=== PATIENT | female | born 1940 | race Caucasian/White ===

== ENCOUNTER 2019-01-27 00:33 | Outpatient (CLI) | payer MEDICARE, OTHER, SELFPAY ==
[2019-01-27 09:46] LABS: Abs Immature Grans 0.01 k/cumm (0.0-0.09); Absolute Basophil Count 0.02 k/cumm (0.0-0.2); Absolute Eosinophil Count 0.34 k/cumm (0.0-0.7); Absolute Lymphocyte Count 1.12 k/cumm (1.2-3.4); Absolute Monocyte Count 0.84 k/cumm (0.11-0.7); Absolute Neutrophil Count 3.72 k/cumm (1.2-6.7); Basophils % 0.3; Eosinophils % 5.6; HCT 38.5 % (36.0-46.0); HGB 12.7 g/dL (12.0-15.5); Immature Grans % 0.2; Lymphocytes % 18.5; Mean Platelet Volume 9.9 fL (8.0-11.0); Monocytes % 13.9; Neutrophils % 61.5; Platelet Count 249 x1000/uL (130-400); RBC 4.23 m/cumm (4.00-5.20); RBC Distribution Width 12.4 % (11.7-14.6); White Blood Cell Count 6.05 k/cumm (4.4-10.8)
[2019-01-27] MEDS: Omnipaque 350 MG/ML 50 ML BTL PO (09:55)
[2019-01-27 10:10] LABS: ALT 19 U/L (12-78); AST 18 U/L (15-37); Albumin 3.6 g/dL (3.4-5.0); Alkaline Phosphatase 99 U/L (46-116); Anion Gap 8.8 mmol/L (3-11); BUN 23 mg/dL (7-18); Bilirubin, Total 0.3 mg/dL (0.2-1.0); CO2 27.2 mmol/L (21.0-32.0); CREATININE 0.97 mg/dL (0.55-1.02); Calcium 9.7 mg/dL (8.5-10.1); Chloride 103 mmol/L (98-107); Estimated GFR 55.54 (mL/min/1.73m2); FREE T4 1.34 ng/dL (0.76-1.46); Glucose 96 mg/dL (70-100); Potassium 4.4 mmol/L (3.5-5.1); Sodium 139 mmol/L (136-145); TSH 0.54 uIU/mL (0.36-3.74); Total Protein 7.9 g/dL (6.4-8.2)
[2019-01-27] MEDS: Omnipaque 350 MG/ML 100 ML BTL IV (10:33)
--- NOTE | 2019-01-27 10:45 | DI.CT_ITS ---
SYMPTOM/DIAGNOSIS: BLADDER CANCER C67.4 , RESTAGING CT SCAN CHEST, ABDOMEN AND PELVIS: Comparison is 10/08/18 CT ABDOMEN AND PELVIS: The liver is unremarkable. No suspicious hepatic mass is seen. The portal, superior mesenteric and splenic veins are patent. The gallbladder is negative. There is no biliary ductal dilatation. The pancreas is unremarkable. The spleen is unremarkable. The adrenal glands are unremarkable. The kidneys show normal and symmetric enhancement. No suspicious solid renal mass or obstruction is identified. 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 There is atherosclerosis of the abdominal aorta but no aneurysmal dilatation. No significant abdominal or pelvic adenopathy, ascites or pneumoperitoneum is present. The patient is status post cystectomy. No residual or recurrent mass is seen in the operative bed. There is diverticulosis of the colon but no evidence of acute diverticulitis. No evidence of bowel obstruction. The patient appears to be status post appendectomy. No aggressive osseous lesions are identified. There is a moderate size hiatal hernia present. IMPRESSION: No evidence of residual or recurrent metastatic neoplasm noted. No evidence of metastatic disease in the abdomen or pelvis. Stable post surgical changes in the pelvis. CT CHEST: The thoracic aorta is intact and of normal caliber. Heart size is at the upper limits of normal. No significant pericardial effusion is seen. No significant thoracic adenopathy, pleural effusion or pneumothorax is identified. Scarring or atelectasis is seen in the lung bases. No pulmonary nodules are identified. The tracheobronchial tree is unremarkable. No suspicious osseous lesions are identified. IMPRESSION: No evidence of thoracic metastatic disease.
== END 2019-01-27 00:53 ==
PROVIDERS: PCP Nurse Practitioner; Visit Provider Internal Medicine Hematology
DX: Z93.6 Other artificial openings of urinary tract status (principal); C67.4 Malignant neoplasm of posterior wall of bladder; E07.9 Disorder of thyroid, unspecified; Z12.89 Encounter for screening for malignant neoplasm of other sites; K44.9 Diaphragmatic hernia without obstruction or gangrene
CPT/HCPCS: 74177; 80053; 71260; 84439; 84443; 85025; J3490; Q9967

== ENCOUNTER 2021-08-18 19:50 | Outpatient (REF) | payer MEDICARE, OTHER, SELFPAY ==
[2021-08-18 20:25] LABS: TSH (W/Ref FT4) 0.62 uIU/mL (0.36-3.74)
== END 2021-08-18 19:51 | disposition home or self-care (01) ==
LOC: LBN 19:50
PROVIDERS: PCP Nurse Practitioner; Visit Provider Nurse Practitioner Family
DX: E03.9 Hypothyroidism, unspecified (principal)
CPT/HCPCS: 84443

== ENCOUNTER → 2021-09-30 11:27 | Outpatient (CLI) | payer MEDICARE, OTHER, SELFPAY ==
--- NOTE | 2021-09-30 | DI.CT_ITS ---
Exam(s) CT HEAD WO EXAM: CT HEAD WO CLINICAL HISTORY: HYPERTENSION,VISION CHANGES,LT FACIAL PARESTHESIA,H53.9,R20.2,I10. TECHNIQUE: Imaging Protocol: Axial computed tomography images with coronal and sagittal reformatted images were created and reviewed COMPARISON: CT HEAD AND CSPINE W/O CONTRAST from 09/02/2016 FINDINGS: Ventricles and Extra axial spaces: Normal in size and morphology for the patient's age. Hemorrhage: None. 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 There are areas of decreased atte nuation in the white matter consistent with small vessel ischemic disease. No acute territorial infa rct is present. Midline shift: None. Brainstem/Cerebellum: Normal. Calvarium: Normal. Visualized Paranasal sinuses/Mastoids: There is opacification of a few ethmoid air cells. The remain ing visualized paranasal sinuses and mastoid air cells are clear. Soft Tissues: Unremarkable. IMPRESSION: No acute intracranial process. RADIATION DOSE DELIVERED: 640.6mGy.cm Total DLP DATA REPOSITORY: All CT scans at this facility are submitted to the National Radiology Data Registry (NRDR) Dose Index Registry (DIR) with the [employer] (ACR). RADIATION OPTIMIZATION: All CT scans at this facility use at least one of these dose optimization te chniques: automated exposure control; mA and/or kV adjustment per patient size (includes targeted exa ms where dose is matched to clinical indication); or iterative reconstruction.
== END ==
PROVIDERS: PCP Nurse Practitioner Family; Visit Provider Nurse Practitioner Family
DX: I10 Essential (primary) hypertension (principal); R20.2 Paresthesia of skin; H53.9 Unspecified visual disturbance
CPT/HCPCS: 70450

== ENCOUNTER 2021-09-30 14:39 | Outpatient (REF) | payer MEDICARE, OTHER, SELFPAY ==
[2021-09-30 16:10] LABS: Abs Immature Grans 0.05 10^3/uL (0.0-0.06); Absolute Basophil Count 0.05 10^3/uL (0.0-0.2); Absolute Eosinophil Count 0.36 10^3/uL (0.0-0.7); Absolute Monocyte Count 0.82 10^3/uL (0.1-0.8); Absolute Neutrophil Count 4.79 10^3/uL (1.2-6.7); Basophils % 0.6; Eosinophils % 4.6; HCT 40.2 % (36.0-46.0); HGB 12.9 g/dL (11.2-15.7); Immature Grans % 0.6; Lymphocytes % 21.9; MCH 31.2 pg (27.0-33.0); MCHC 32.1 % (32.0-36.0); MCV 97.1 fL (80-95); MPV 10.1 fL (8.0-11.0); Monocytes % 10.6; Neutrophils % 61.7; Nucleated RBC 0 %; Platelet Count 323 10^3/uL (130-400); RBC 4.14 10^6/uL (3.93-5.22); RDW 13.2 % (11.7-14.6); RDW-SD 47.6 fL; WBC 7.77 10^3/uL (4.4-10.8)
[2021-09-30 16:50] LABS: ALT 21 U/L (14-59); AST 18 U/L (15-37); Albumin 3.7 g/dL (3.4-5.0); Alkaline Phosphatase 110 U/L (46-116); Anion Gap 11.2 mmol/L (3-11); BUN 17 mg/dL (7-18); Bilirubin, Total 0.3 mg/dL (0.2-1.0); CO2 24.8 mmol/L (21.0-32.0); CREATININE 1.1 mg/dL (0.55-1.02); Calcium 9.2 mg/dL (8.5-10.1); Chloride 105 mmol/L (98-107); Estimated GFR 47.67 (mL/min/1.73m2); Glucose 80 mg/dL (74-106); Magnesium 1.8 mg/dL (1.8-2.4); Potassium 4.3 mmol/L (3.5-5.1); Sodium 141 mmol/L (136-145); Total Protein 7.3 g/dL (6.4-8.2); Vitamin B12 82 pg/mL (193-986)
== END 2021-09-30 14:40 | disposition home or self-care (01) ==
LOC: NCHCN 14:39
PROVIDERS: PCP Nurse Practitioner Family; Visit Provider Nurse Practitioner Family
DX: I10 Essential (primary) hypertension (principal); R20.2 Paresthesia of skin; H53.9 Unspecified visual disturbance
CPT/HCPCS: 80053; 82607; 83735; 85025

== ENCOUNTER 2021-12-12 19:27 | Outpatient (REF) | payer MEDICARE, OTHER, SELFPAY ==
[2021-12-12 20:27] LABS: Anion Gap 9.4 mmol/L (3-11); BUN 21 mg/dL (7-18); CO2 25.6 mmol/L (21.0-32.0); CREATININE 1.1 mg/dL (0.55-1.02); Calcium 8.9 mg/dL (8.5-10.1); Chloride 104 mmol/L (98-107); Estimated GFR 47.67 (mL/min/1.73m2); Glucose 99 mg/dL (74-106); Potassium 4.4 mmol/L (3.5-5.1); Sodium 139 mmol/L (136-145)
[2021-12-12 20:32] LABS: Folate > 20.0 ng/mL (8.6-20.0); Vitamin B12 > 2000 pg/mL (193-986)
== END 2021-12-12 19:28 | disposition home or self-care (01) ==
LOC: NCHCN 19:27
PROVIDERS: PCP Nurse Practitioner Family; Visit Provider Nurse Practitioner Family
DX: E53.8 Deficiency of other specified B group vitamins (principal); I10 Essential (primary) hypertension
CPT/HCPCS: 80048; 82607; 82746

== ENCOUNTER 2022-06-15 17:36 | Outpatient (REF) | payer MEDICARE, OTHER, SELFPAY ==
[2022-06-15 18:37] LABS: ALT 17 U/L (14-59); AST 30 U/L (15-37); Albumin 3.7 g/dL (3.4-5.0); Alkaline Phosphatase 104 U/L (46-116); Anion Gap 7.4 mmol/L (3-11); BUN 26 mg/dL (7-18); Bilirubin, Total 0.2 mg/dL (0.2-1.0); CO2 26.6 mmol/L (21.0-32.0); Calcium 9.7 mg/dL (8.5-10.1); Chloride 103 mmol/L (98-107); Estimated GFR 56.25 (mL/min/1.73m2); Glucose 89 mg/dL (74-106); Potassium 4.4 mmol/L (3.5-5.1); Sodium 137 mmol/L (136-145); TSH 0.67 uIU/mL (0.36-3.74); Total Protein 7.9 g/dL (6.4-8.2)
== END 2022-06-15 17:37 | disposition home or self-care (01) ==
LOC: NCHCN 17:36
PROVIDERS: PCP Nurse Practitioner Family; Visit Provider Nurse Practitioner Family
DX: I10 Essential (primary) hypertension (principal); E03.9 Hypothyroidism, unspecified
CPT/HCPCS: 80053; 84443

== ENCOUNTER 2022-10-04 01:58 | Outpatient (CLI) | payer MEDICARE, OTHER, SELFPAY ==
--- NOTE | 2022-10-04 | DI.MAMMO_ITS ---
Exam(s) MAMMO SCREENING EXAM: MAMMO SCREENING CLINICAL HISTORY: SCREENING, Z12.39 TECHNIQUE: Mammograms were interpreted according to the usual protocol including computer analysis w [employer] CAD system, tomosynthesis and C-view imaging. COMPARISON: 2013 FINDINGS: The breasts are composed of scattered fibroglandular densities, Breast Density category B. No suspicious masses or suspicious microcalcifications are seen. No skin thickening or abnormal axillary lymph nodes are seen. There has been no significant change from prior exams. IMPRESSION: BI-RADS Category 1, Negative mammogram Continued annual screening should be based on patient's clinical status given age over 80... Breast Density - Category B, scattered fibroglandular densities. A negative radiographic report should not delay biopsy if a dominant or clinically suspicious mass is present. Up to ten percent of cancers are not identified on mammography. A negative report may reinforce clinical impression. Adenosis and dense breasts may obscure an underlying neoplasm. False positive reports average 6 to 10%. Patient will receive a letter notifying them of these results.
== END 2022-10-04 02:18 ==
LOC: DI 01:59
PROVIDERS: PCP Nurse Practitioner Family; Visit Provider Nurse Practitioner Family
DX: Z12.31 Encounter for screening mammogram for malignant neoplasm of breast (principal)
CPT/HCPCS: 77063; 77067

== ENCOUNTER 2022-12-14 11:27 | Outpatient (REF) | payer MEDICARE, OTHER, SELFPAY ==
[2022-12-14 16:57] LABS: Vitamin B12 > 2000 pg/mL (193-986)
[2022-12-14 16:58] LABS: Folate > 20.0 ng/mL (8.6-20.0)
== END 2022-12-14 11:28 | disposition home or self-care (01) ==
LOC: NCHCN 11:27
PROVIDERS: PCP Nurse Practitioner Family; Visit Provider Nurse Practitioner Family
DX: E53.8 Deficiency of other specified B group vitamins (principal)
CPT/HCPCS: 82607; 82746

== ENCOUNTER 2023-01-22 16:13 | Outpatient (REF) | payer MEDICARE, OTHER, SELFPAY ==
[2023-01-22 14:04] LABS: ESR 65 mm/hr (0-30)
[2023-01-23 10:52] LABS: Lyme Ab w Rflx to Lyme Confirm Negative (Negative)
== END 2023-01-22 16:14 | disposition home or self-care (01) ==
LOC: LBN 16:13
PROVIDERS: PCP Nurse Practitioner Family; Visit Provider Nurse Practitioner Family
DX: M79.10 Myalgia, unspecified site (principal); T14.8XXA Other injury of unspecified body region, initial encounter; W57.XXXA Bitten or stung by nonvenomous insect and other nonvenomous arthropods, initial encounter
CPT/HCPCS: 85652; 86618

== ENCOUNTER 2023-02-01 17:10 | Outpatient (REF) | payer MEDICARE, OTHER, SELFPAY ==
[2023-02-01 16:05] LABS: Abs Immature Grans 0.06 10^3/uL (0.0-0.06); Absolute Basophil Count 0.07 10^3/uL (0.0-0.2); Absolute Eosinophil Count 0.29 10^3/uL (0.0-0.7); Absolute Lymphocyte Count 1.78 10^3/uL (1.2-3.4); Absolute Neutrophil Count 5.49 10^3/uL (1.2-6.7); Basophils % 0.8; Eosinophils % 3.4; HCT 38.7 % (36.0-46.0); HGB 12.5 g/dL (11.2-15.7); Immature Grans % 0.7; MCH 29.8 pg (27.0-33.0); MCHC 32.3 % (32.0-36.0); MCV 92 fL (80-95); MPV 10.3 fL (8.0-11.0); Monocytes % 9.4; Neutrophils % 64.7; Platelet Count 360 10^3/uL (130-400); RDW 12.8 % (11.7-14.6); RDW-SD 43.2 fL; WBC 8.49 10^3/uL (4.4-10.8)
[2023-02-01 16:47] LABS: TSH 1.52 uIU/mL (0.36-3.74)
[2023-02-02 12:38] LABS: Lyme Ab w Rflx to Lyme Confirm Negative (Negative)
[2023-02-02 15:34] LABS: ANA Interpretation Positive (Negative); ANA Titer Pattern 1:160 Homogeneous
[2023-02-03 23:50] LABS: Anaplasma phagocytophilum Negative (Negative); B. miyamotoi PCR Negative (Negative); Babesia divergens/MO-1 Negative (Negative); Babesia duncani Negative (Negative); Babesia microti Negative (Negative); Ehrlichia chaffeensis Negative (Negative); Ehrlichia ewingii/canis Negative (Negative); Ehrlichia muris eauclairensis Negative (Negative)
== END 2023-02-01 17:11 | disposition home or self-care (01) ==
LOC: NCHCN 17:10
PROVIDERS: PCP Nurse Practitioner Family; Visit Provider Nurse Practitioner Family
DX: E03.9 Hypothyroidism, unspecified (principal); R53.83 Other fatigue; M79.18 Myalgia, other site; W57.XXXA Bitten or stung by nonvenomous insect and other nonvenomous arthropods, initial encounter; T14.8XXA Other injury of unspecified body region, initial encounter
CPT/HCPCS: 87798; 84443; 85025; 86038; 86618

== ENCOUNTER 2023-08-29 14:38 | Outpatient (REF) | payer MEDICARE, OTHER, SELFPAY ==
[2023-08-29 19:41] LABS: Abs Immature Grans 0.03 10^3/uL (0.0-0.06); Absolute Basophil Count 0.06 10^3/uL (0.0-0.2); Absolute Eosinophil Count 0.33 10^3/uL (0.0-0.7); Absolute Lymphocyte Count 1.61 10^3/uL (1.2-3.4); Absolute Monocyte Count 0.79 10^3/uL (0.1-0.8); Basophils % 0.7; Eosinophils % 4.1; HCT 39.5 % (36.0-46.0); Immature Grans % 0.4; Lymphocytes % 19.8; MCH 30.4 pg (27.0-33.0); MCHC 32.9 % (32.0-36.0); MCV 93 fL (80-95); MPV 10.6 fL (8.0-11.0); Monocytes % 9.7; Neutrophils % 65.3; Platelet Count 306 10^3/uL (130-400); RBC 4.27 10^6/uL (3.93-5.22); RDW 13.2 % (11.7-14.6); RDW-SD 44.6 fL; WBC 8.12 10^3/uL (4.4-10.8)
[2023-08-29 20:21] LABS: ALT 15 U/L (14-59); AST 23 U/L (15-37); Albumin 3.7 g/dL (3.4-5.0); Alkaline Phosphatase 89 U/L (46-116); BUN 23 mg/dL (7-18); Bilirubin, Total 0.3 mg/dL (0.2-1.0); CREATININE 1.3 mg/dL (0.55-1.02); Calcium 9.5 mg/dL (8.5-10.1); Chloride 104 mmol/L (98-107); FREE T4 1.25 ng/dL (0.76-1.46); Glucose 93 mg/dL (74-106); Magnesium 1.9 mg/dL (1.8-2.4); Potassium 4.5 mmol/L (3.5-5.1); Sodium 140 mmol/L (136-145); TSH 1.79 uIU/Ml (0.36-3.74); Total Protein 7.6 g/dL (6.4-8.2)
[2023-08-29 21:27] LABS: Vitamin B12 737 pg/mL (193-986)
== END 2023-08-29 14:39 | disposition home or self-care (01) ==
LOC: NCHCN 14:38
PROVIDERS: PCP Nurse Practitioner Family; Visit Provider Nurse Practitioner Family
DX: I10 Essential (primary) hypertension (principal); E03.9 Hypothyroidism, unspecified; E53.8 Deficiency of other specified B group vitamins; M79.10 Myalgia, unspecified site
CPT/HCPCS: 80053; 82607; 83735; 84439; 84443; 85025

== ENCOUNTER 2024-01-15 13:21 | Emergency (ER) | payer MEDICARE, OTHER, SELFPAY ==
[2024-01-15] VITALS (42 sets, daily range): BP systolic 93–130; BP diastolic 32–68; PULSE 58–77; RESP 16–18; TEMP 35.5–37.2; O2SAT 95–98
--- NOTE | 2024-01-15 13:41 | DI.CT_ITS ---
Exam(s) CT ABDOMEN PELVIS WO EXAM: CT ABDOMEN PELVIS WO CLINICAL HISTORY: ABD PAIN DIARRHEA. TECHNIQUE: Imaging Protocol: Axial computed tomography images with coronal and sagittal reformatted images were created and reviewed. Oral: / no COMPARISON: CT CT CHEST/ABD/PEL W from 01/27/2019 FINDINGS: Lung Bases: Mild atelectasis. Heart mildly enlarged. Small to moderate size hiatal hernia. Liver: Normal density. No suspicious mass. Gallbladder and biliary tract: No radiodense calculus or biliary dilation. Pancreas: Normal density. No abnormal calcifications or inflammatory process. Spleen: Normal. Kidneys: Normal size, contour and axis. No radiodense stones. No obstructive uropathy. No suspicious masses seen. Right ureters diverted to ileal conduit. No change in appearance. Adrenal glands: No masses seen. Lymph nodes: Within normal limits. Vasculature: Abdominal aorta non-dilated. Soft tissues: Ileal conduit again noted. There is now a low portion of the splenic flexure of the co delta which now extends through the right-sided abdominal wall defect. There is marked abnormal bowel wall thickening and some stranding in the surrounding fat suspicious for incarceration. There is a s mall fatty containing umbilical hernia seen to the right of the midline more inferiorly. Bladder: Resected. Bowel: See soft tissues. Sigmoid diverticulosis noted. No diverticulitis. There appears to be some fluid in the rectum. No wall thickening. Peritoneal cavity: No ascites. No focal collection. No mesenteric inflammatory response. Reproductive organs: Hysterectomy. Bones: Unremarkable for age. IMPRESSION: Hepatic flexure of the colon and extends through the defect in the abdominal wall for the ileal condu it. The bowel show significant wall thickening and surrounding inflammation suspicious for incarcera tion. The ileal conduit portion is unchanged. No hydronephrosis. Findings called to Dr. Pabon of the emergency department. RADIATION DOSE DELIVERED: Total DLP DATA REPOSITORY: All CT scans at this facility are submitted to the National Radiology Data Registry (NRDR) Dose Index Registry (DIR) with the [employer] (ACR). RADIATION OPTIMIZATION: All CT scans at this facility use at least one of these dose optimization te chniques: automated exposure control; mA and/or kV adjustment per patient size (includes targeted exa ms where dose is matched to clinical indication); or iterative reconstruction.
[2024-01-15] MEDS: Normal Saline 1,000 ML 1000 ML IV ×2 (14:10→15:41)
[2024-01-15 14:13] LABS: Lactate 1.3 mmol/L (0.6-1.4)
[2024-01-15 14:14] LABS: Abs Immature Grans 0.05 10^3/uL (0.0-0.06); Absolute Basophil Count 0.03 10^3/uL (0.0-0.2); Absolute Eosinophil Count 0.08 10^3/uL (0.0-0.7); Absolute Lymphocyte Count 0.91 10^3/uL (1.2-3.4); Absolute Monocyte Count 0.95 10^3/uL (0.1-0.8); Basophils % 0.2 %; Eosinophils % 0.6 %; HCT 39.6 % (36.0-46.0); HGB 13.1 g/dL (11.2-15.7); Immature Grans % 0.4 %; Lymphocytes % 6.8 %; MCH 29.5 pg (27.0-33.0); MCHC 33.1 % (32.0-36.0); MCV 89 fL (80-95); MPV 10.1 fL (8.0-11.0); Monocytes % 7.1 %; Neutrophils % 84.9 %; Platelet Count 252 10^3/uL (130-400); RBC 4.44 10^6/uL (3.93-5.22); RDW-SD 45.6 fL; WBC 13.44 10^3/uL (4.4-10.8)
[2024-01-15 14:15] LABS: Absolute Neutrophil Count 11.41 10^3/uL (1.2-6.7)
[2024-01-15 14:17] LABS: ESR 41 mm/hr (0-30)
[2024-01-15 14:30] LABS: ALT 14 U/L (14-59); AST 16 U/L (15-37); Albumin 3.4 g/dL (3.4-5.0); Alkaline Phosphatase 93 U/L (46-116); Anion Gap 15.3 mmol/L (3-11); BUN 33 mg/dL (7-18); Bilirubin, Total 0.63 mg/dL (0.2-1.0); C-Reactive Protein 14.02 mg/dL (<or=0.5); CO2 19.7 mmol/L (21.0-32.0); Calcium 9.1 mg/dL (8.5-10.1); Chloride 102 mmol/L (98-107); Estimated GFR 24.33 (mL/min/1.73m2); Glucose 132 mg/dL (74-106); Magnesium 1.5 mg/dL (1.8-2.4); Potassium 3.6 mmol/L (3.5-5.1); Sodium 137 mmol/L (136-145); Total Protein 7.7 g/dL (6.4-8.2)
[2024-01-15] MEDS: MAGNESIUM SULFATE 2 GM/50 ML BAG IVINF (15:10)
[2024-01-15 15:57] LABS: C Diff PCR Negative (Negative)
[2024-01-15] MEDS: PIPERACILLIN/TAZO 4.5 GM in Normal Saline 100 ML IVPB (16:51)
--- NOTE | 2024-01-15 16:57 | W.ED.GENAD ---
Discharge Plan Disposition Patient Disposition: Transfer-Acute Inpatient Care Discharge Details Clinical Impression: Parastomal hernia with obstruction, without gangrene Primary Care Provider: Unknown,Unknown ED Provider: Stephen Pabon Home Meds and New Rx's Prescriptions: No Action levothyroxine 50 MCG tablet 50 mcg PO DAILY albuterol sulfate 8.5 GM HFA aerosol inhaler 2 puff Inhalation PRN PRN lisinopril 40 MG tablet 40 mg PO HS amlodipine 2.5 MG tablet 2.5 mg PO HS multivitamin [Multi-Day] 1 EACH tablet 1 tab PO DAILY ketorolac 10 MG tablet 10 mg PO Q8H PRN (Reason: Pain) Qty: 15 0RF nitrofurantoin macrocrystal [Macrodantin] 50 MG capsule 50 mg PO QID Qty: 12 0RF HPI General Date/Time Provider Initiated Documentation: 01/15/24 13:38. Limitations to Documentation: physical limitation. Information obtained by: patient and family. HPI Narrative: 83-year-old female with past medical history including bladder cancer, status post radical cystectomy, hypertension presents for evaluation of abdominal discomfort and watery diarrhea. She reports that this has been ongoing for the last 24 hours. She reports multiple episodes of watery stool. No significant abdominal pain. She does not have any nausea or vomiting. No known fever. She reports feeling generally poor. Daughter reports history of bladder resection with ileostomy. They know that there is a hernia around the ostomy site, but this is her problems in the past. Related Data Home Medications ?Medication ?Instructions ?Recorded ?Confirmed albuterol sulfate 90 mcg/actuation 2 puff inhalation PRN PRN 04/05/15 01/15/24 aerosol inhaler levothyroxine 50 mcg tablet 50 mcg PO DAILY 04/05/15 01/15/24 lisinopril 40 mg tablet 40 mg PO HS 04/05/15 01/15/24 multivitamin (Multi-Day tablet) 1 tab PO DAILY 08/05/15 01/15/24 amlodipine 2.5 mg tablet 2.5 mg PO HS 02/27/17 01/15/24 ketorolac 10 mg tablet 10 mg PO Q8H PRN Pain #15 tabs 03/29/17 01/15/24 nitrofurantoin macrocrystal 50 mg 50 mg PO QID antibiotic #12 caps 03/29/17 01/15/24 capsule (Macrodantin) Previous Rx's ?Medication ?Instructions ?Recorded ketorolac 10 mg tablet 10 mg PO Q8H PRN Pain #15 tabs 03/29/17 nitrofurantoin macrocrystal 50 mg 50 mg PO QID antibiotic #12 caps 03/29/17 capsule (Macrodantin) Allergies Allergy/AdvReac Type Severity Reaction Status Date / Time doxycycline Allergy Unverified 04/20/17 10:33 metronidazole Allergy Unverified 04/20/17 10:33 General Stated Complaint: Nausea/Vomit/Diar JAVIER: 3 Exam Narrative Exam Narrative: Review of Systems: All systems reviewed & are unremarkable except as noted in HPI and below Well-developed, ill-appearing NCAT PERRL, normal conjunctiva Moist mucous membranes RRR, hypotension Unlabored, respiratory effort Nondistended abdomen no tenderness, ostomy in the right lower quadrant with some urine in the bag Extremities w/o deformity, no cyanosis, no edema No rashes or lesions. no focal neurologic deficits Appropriate mood and affect Course Vital Signs Vital signs: Vital Signs Temperature 35.5 C L 01/15/24 13:25 Pulse 77 01/15/24 13:25 Respiratory Rate 18 01/15/24 13:25 Blood Pressure 93/42 L 01/15/24 13:25 Pulse Oximetry 95 01/15/24 13:25 Temperature 37.2 C 01/15/24 13:37 Temperature Source Oral 01/15/24 13:37 Pulse 65 01/15/24 16:54 Pulse Rhythm Regular 01/15/24 14:44 Pulse Strength Normal 01/15/24 14:44 Respiratory Rate 18 01/15/24 13:25 Respiratory Effort Normal 01/15/24 13:38 Blood Pressure 112/56 L 01/15/24 16:54 Blood Pressure Mean 74 01/15/24 16:54 Blood Pressure Position Supine 01/15/24 16:54 Pulse Oximetry 95 01/15/24 13:25 Oxygen Delivery Method Room Air 01/15/24 13:25 Oxygen Flow Rate 0 01/15/24 13:25 Pain Level 0 01/15/24 13:25 Lab/Test Results Lab/Test Results: 01/15/24 14:28 Stool Stool Occult Blood ([facility]) - Final Laboratory Tests Range/Units 0701/15/24 01/15/24 13:41 14:05 14:28 WBC (4.4-10.8) 10^3/uL 13.44 H RBC (3.93-5.22) 10^6/uL 4.44 Hgb (11.2-15.7) g/dL 13.1 Hct (36.0-46.0) % 39.6 MCV (80-95) fL 89 MCH (27.0-33.0) pg 29.5 MCHC (32.0-36.0) % 33.1 RDW (11.7-14.6) % 14.0 Plt Count (130-400) 10^3/uL 252 MPV (8.0-11.0) fL 10.1 Immature Gran % % 0.4 Neutrophils % % 84.9 Lymphocytes % % 6.8 Monocytes % % 7.1 Eosinophils % % 0.6 Basophils % % 0.2 Nucleated RBC % (0.0-0.3) % 0.0 Absolute Neutrophils (1.2-6.7) 10^3/uL 11.41 H Absolute Lymphocytes (1.2-3.4) 10^3/uL 0.91 L Absolute Monocytes (0.1-0.8) 10^3/uL 0.95 H Absolute Eosinophils (0.0-0.7) 10^3/uL 0.08 Absolute Basophils (0.0-0.2) 10^3/uL 0.03 ESR (0-30) mm/hr 41 H VBG Lactate (0.6-1.4) mmol/L 1.3 Sodium (136-145) mmol/L 137 Potassium (3.5-5.1) mmol/L 3.6 Chloride (98-107) mmol/L 102 Carbon Dioxide (21.0-32.0) mmol/L 19.7 L Anion Gap (3-11) mmol/L 15.3 H BUN (7-18) mg/dL 33 H Creatinine (0.55-1.02) mg/dL 2.0 H Est GFR (CKD-EPI 2020) (mL/min/1.73m2) 24.33 Glucose (74-106) mg/dL 132 H Calcium (8.5-10.1) mg/dL 9.1 Magnesium Cancelled 1.5 L Total Bilirubin (0.2-1.0) mg/dL 0.63 AST (15-37) U/L 16 ALT (14-59) U/L 14 Alkaline Phosphatase (46-116) U/L 93 C-Reactive Protein (<or=0.5) mg/dL 14.02 H Total Protein (6.4-8.2) g/dL 7.7 Albumin (3.4-5.0) g/dL 3.4 Stl C.difficile Tox PCR (Negative) Negative Medical Decision Making Emergent evaluation of diarrhea. Initial differential includes bowel obstruction, colitis. Patient does not have any risk factors for C. difficile. 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 I did review her medical record and noted recent visit with [facility] general surgery. No surgical indication at that time given that she was not obstructed. Will begin resuscitation with IV fluids as the patient appears very dehydrated. Lab work reviewed, the patient does have a slight elevation in white blood cell count at 13 with a shift. ESR and CRP are significantly elevated. Her lactic acid is at the upper limit of normal. Her creatinine is elevated beyond her baseline. Her magnesium level is noted to be low as well this will be replaced IV. The patient has gotten a CT scan. Due to her renal insufficiency for today, this was obtained without IV contrast. I discussed the CT findings with the radiologist and there is concern for obstruction at the ostomy hernia site. The I discussed this finding with general surgery here who states that this is not a procedure that can be performed at this facility so I have reached out to [facility] for transfer I will give a dose of antibiotics. After fluid resuscitation the patient does appear clinically improved, her bowels have slightly slowed down but she is continuing to have frequent loose stools. Final disposition pending consultation and acceptance to [facility]. Turned over to oncoming provider. Medical Records Medical records reviewed: Yes I reviewed the patient's medical records. Lab Data Lab results reviewed: Yes I reviewed the patient's lab results. Quality:[facility] Related Social Needs: No Data to Display [facility] All Active Problems (Updated 01/15/24 @ 17:04 by Stephen Pabon MD) Parastomal hernia with obstruction, without gangrene (Acute) Family history of malignant neoplasm of digestive organ (Acute) Medical History Asthma Hypertension Hypothyroidism Surgical History Ligation of fallopian tube Excision, Bladder Tumor Colonoscopy - IV Sedation Extraction of cataract Social History Smoking/Tobacco Use Status: Never Smoking risk assessment performed?: Yes Alcohol Intake: current Drug use: Never Substance use type: does not use Do you feel safe in your relationship?: Yes
[2024-01-15] MEDS: Normal Saline 1,000 ML 125 ML IV (17:15)
--- NOTE | 2024-01-15 17:31 | ED.PROG_ITS ---
Date of service: 01/15/24 Time of Service: 17:31 Medical Decision Making Discussed with Dr. Craig general surgery at [facility] who accepts the patient as a direct admit. Will arrange for transport. Family updated. Quality:[facility] Related Social Needs: No Data to Display Discharge Plan Disposition Patient Disposition: Transfer-Acute Inpatient Care Discharge Details Clinical Impression: Parastomal hernia with obstruction, without gangrene Primary Care Provider: Unknown,Unknown ED Provider: Stephen Pabon Home Meds and New Rx's Prescriptions: No Action levothyroxine 50 MCG tablet 50 mcg PO DAILY albuterol sulfate 8.5 GM HFA aerosol inhaler 2 puff Inhalation PRN PRN lisinopril 40 MG tablet 40 mg PO HS amlodipine 2.5 MG tablet 2.5 mg PO HS multivitamin [Multi-Day] 1 EACH tablet 1 tab PO DAILY ketorolac 10 MG tablet 10 mg PO Q8H PRN (Reason: Pain) Qty: 15 0RF nitrofurantoin macrocrystal [Macrodantin] 50 MG capsule 50 mg PO QID Qty: 12 0RF
[2024-01-15] MEDS: ACETAMINOPHEN 1,000 MG/100 ML BTL 400 MG IVPB (17:50)
--- NOTE | 2024-01-15 17:54 | ED.PROG_ITS ---
Date of service: 01/15/24 Time of Service: 17:00 Medical Decision Making I received signout regarding this patient from Dr. Pabon. We are awaiting bed assignment at this point for [facility]. While waiting for bed placement the patient complained of feeling shaky all over. I did reevaluate her. Denies feeling more or worsening abdominal pain. Denies feeling more or worsening nausea. I did palpate her abdomen and it continues to be soft. I rechecked her vital signs. Her initial temperature at 125 was 35 degrees and now it is 36.7. I wonder if the shaking is rigors and the patient is about to develop a fever. I ordered IV Tylenol at this point. She will be closely observed. Tylenol was successful in controlling the patient's episode. [facility] transfer line has been contacted multiple times and most recently they informed ED paralegal legal secretary that they are working on discharges for [facility] with the goal that the patient will have an accepting bed for [facility]. We finally have bed assignment for the patient. We are arranging for transport now. Patient is informed of this plan and agreed. Quality:[facility] Related Social Needs: No Data to Display Discharge Plan Disposition Patient Disposition: Transfer-Acute Inpatient Care Discharge Details Clinical Impression: Parastomal hernia with obstruction, without gangrene Primary Care Provider: Unknown,Unknown ED Provider: Melita Marroquin Home Meds and New Rx's Prescriptions: No Action levothyroxine 50 MCG tablet 50 mcg PO DAILY albuterol sulfate 8.5 GM HFA aerosol inhaler 2 puff Inhalation PRN PRN lisinopril 40 MG tablet 40 mg PO HS amlodipine 2.5 MG tablet 2.5 mg PO HS multivitamin [Multi-Day] 1 EACH tablet 1 tab PO DAILY ketorolac 10 MG tablet 10 mg PO Q8H PRN (Reason: Pain) Qty: 15 0RF nitrofurantoin macrocrystal [Macrodantin] 50 MG capsule 50 mg PO QID Qty: 12 0RF
[2024-01-16 11:33] LABS: Campylobacter PCR Negative (Negative); Salmonella PCR Positive (Negative); Shiga Toxin PCR Negative (Negative); Shigella/Enteroinvasive Ecoli Negative (Negative)
== END 2024-01-15 22:52 | disposition short-term general hospital (02) ==
PROVIDERS: Emergency Medicine; Emergency Provider Emergency Medicine
DX: K43.3 Parastomal hernia with obstruction, without gangrene (principal); R19.7 Diarrhea, unspecified
CPT/HCPCS: 00123; 36415; 36416; 80053; 82962; 85652; 87493; 87505; 96361; 96365; 96367; 99285; 74176; 82270; 83605; 83735; 85025; 86140; J0131; J2543; J3475

== ENCOUNTER 2024-06-12 13:02 | Outpatient (REF) | payer MEDICARE, OTHER, SELFPAY ==
[2024-06-12 20:26] LABS: Abs Immature Grans 0.02 10^3/uL (0.0-0.06); Absolute Basophil Count 0.06 10^3/uL (0.0-0.2); Absolute Eosinophil Count 0.33 10^3/uL (0.0-0.7); Absolute Lymphocyte Count 1.92 10^3/uL (1.2-3.4); Absolute Monocyte Count 0.81 10^3/uL (0.1-0.8); Absolute Neutrophil Count 5.63 10^3/uL (1.2-6.7); Basophils % 0.7 %; Eosinophils % 3.8 %; HCT 42.3 % (36.0-46.0); HGB 13.8 g/dL (11.2-15.7); Immature Grans % 0.2 %; Lymphocytes % 21.9 %; MCH 29.9 pg (27.0-33.0); MCHC 32.6 % (32.0-36.0); MCV 92 fL (80-95); MPV 10.4 fL (8.0-11.0); Monocytes % 9.2 %; Neutrophils % 64.2 %; Platelet Count 289 10^3/uL (130-400); RBC 4.61 10^6/uL (3.93-5.22); RDW 12.6 % (11.7-14.6); RDW-SD 42.1 fL; WBC 8.77 10^3/uL (4.4-10.8)
[2024-06-12 20:42] LABS: Iron 52 ug/dL (50-170); Total Iron Binding Capacity 290 ug/dL (250-450); Transferrin Sat 18 % (15-50)
[2024-06-12 21:16] LABS: Vitamin B12 784 pg/mL (193-986)
[2024-06-12 21:17] LABS: Folate > 20.0 ng/mL (8.6-20.0)
[2024-06-12 21:33] LABS: FREE T4 1.31 ng/dL (0.76-1.46)
== END 2024-06-12 13:03 | disposition home or self-care (01) ==
LOC: NCHCN 13:02
PROVIDERS: Visit Provider Nurse Practitioner Family
DX: Z86.2 Personal history of diseases of the blood and blood-forming organs and certain disorders involving the immune mechanism (principal); E03.9 Hypothyroidism, unspecified; R89.8 Other abnormal findings in specimens from other organs, systems and tissues
CPT/HCPCS: 82607; 82746; 83540; 83550; 84439; 84443; 85025

== ENCOUNTER 2024-08-08 14:12 | Outpatient (REF) | payer MEDICARE, OTHER, SELFPAY ==
[2024-08-08 16:13] LABS: Abs Immature Grans 0.03 10^3/uL (0.0-0.06); Absolute Basophil Count 0.05 10^3/uL (0.0-0.2); Absolute Eosinophil Count 0.27 10^3/uL (0.0-0.7); Absolute Lymphocyte Count 1.54 10^3/uL (1.2-3.4); Absolute Monocyte Count 0.79 10^3/uL (0.1-0.8); Absolute Neutrophil Count 6.05 10^3/uL (1.2-6.7); Basophils % 0.6 %; Eosinophils % 3.1 %; HCT 40.4 % (36.0-46.0); HGB 13.2 g/dL (11.2-15.7); Immature Grans % 0.3 %; Lymphocytes % 17.6 %; MCH 30.2 pg (27.0-33.0); MCHC 32.7 % (32.0-36.0); MCV 92 fL (80-95); MPV 10.6 fL (8.0-11.0); Neutrophils % 69.4 %; Platelet Count 284 10^3/uL (130-400); RBC 4.37 10^6/uL (3.93-5.22); RDW 13.3 % (11.7-14.6); RDW-SD 45.4 fL; WBC 8.73 10^3/uL (4.4-10.8)
[2024-08-08 17:15] LABS: ALT 17 U/L (14-59); AST 23 U/L (15-37); Albumin 4.1 g/dL (3.4-5.0); Alkaline Phosphatase 108 U/L (46-116); Anion Gap 12.1 mmol/L (3-11); BUN 20 mg/dL (7-18); Bilirubin, Total 0.58 mg/dL (0.2-1.0); CO2 23.9 mmol/L (21.0-32.0); CREATININE 1.4 mg/dL (0.55-1.02); Calcium 9.7 mg/dL (8.5-10.1); Chloride 103 mmol/L (98-107); Ferritin 98 ng/mL (8-252); Glucose 72 mg/dL (74-106); Potassium 4.3 mmol/L (3.5-5.1); Sodium 139 mmol/L (136-145); Total Protein 8.1 g/dL (6.4-8.2)
[2024-08-08 17:35] LABS: Iron 126 ug/dL (50-170); Total Iron Binding Capacity 306 ug/dL (250-450); Transferrin Sat 41 % (15-50)
== END 2024-08-08 14:13 | disposition home or self-care (01) ==
LOC: NCHCN 14:12
PROVIDERS: Visit Provider Nurse Practitioner Family
DX: R06.09 Other forms of dyspnea (principal)
CPT/HCPCS: 80053; 82728; 83540; 83550; 85025

== ENCOUNTER 2024-08-11 11:36 | Outpatient (CLI) | payer MEDICARE, OTHER, SELFPAY ==
--- NOTE | 2024-08-11 10:38 | DI.RAD_ITS ---
Exam(s) XR CHEST 2V PA LATERAL EXAM: XR CHEST 2V PA LATERAL CLINICAL HISTORY: OTHER FORMS OF DYSPNEA R06.09 COLINDRES. TECHNIQUE: 2D digital imaging was performed. COMPARISON: CT CT ABDOMEN PELVIS WO from 01/15/2024 FINDINGS: 2 views: Heart size is normal. The mediastinum is not widened. Some atelectasis or scarring lung bases, probably corresponding to what was seen on CT scan of December 31. However, there are no obvious confluent infiltrates pleural effusions. No pulmonary edema. IMPRESSION: No acute pulmonary findings.Scarring or atelectasis in the lung bases noted. DATA REPOSITORY: RADIATION DOSE DELIVERED:
== END 2024-08-11 11:56 ==
LOC: DI 11:37
PROVIDERS: Visit Provider Nurse Practitioner Family
DX: R06.09 Other forms of dyspnea (principal)
CPT/HCPCS: 71046

== ENCOUNTER 2024-09-08 04:30 | Outpatient (CLI) | payer MEDICARE, OTHER, SELFPAY ==
[2024-09-08] MEDS: Inhaler, Assist Device 1 EACH MC (16:34)
[2024-09-08] MEDS: Levalbuterol HFA 15 GM INH 4 PUFF IH (16:34)
--- NOTE | 2024-09-09 15:39 | W.PFT ---
Date of service: 09/08/24 Time of Service: 15:04 Pulmonary Function Test Result Indications: Asthma Interpretation Spirometry: No airflow limitation. Significant bronchodilator response. Lung Volumes: Air trapping and hyperinflation Diffusion Capacity: Normal diffusion Airway Pressure: Normal airways resistance Impression No baseline airflow obstruction with a significant bronchodilator response and air trapping Clinical Correlation therefore is recommended.
== END 2024-09-08 04:31 | disposition home or self-care (01) ==
LOC: RT 04:30
PROVIDERS: PCP Nurse Practitioner Family; Visit Provider Student in an Organized Health Care Education/Training Program
DX: J45.909 Unspecified asthma, uncomplicated (principal)
CPT/HCPCS: 94060; 94726; 94729

== ENCOUNTER 2025-01-26 16:17 | Outpatient (REF) | payer MEDICARE, OTHER, SELFPAY ==
[2025-01-26 22:15] LABS: TSH 0.29 uIU/mL (0.36-3.74)
== END 2025-01-26 16:18 | disposition home or self-care (01) ==
LOC: NCHCN 16:17
PROVIDERS: PCP Nurse Practitioner Family; Visit Provider Student in an Organized Health Care Education/Training Program
DX: E03.9 Hypothyroidism, unspecified (principal)
CPT/HCPCS: 84439; 84443

== ENCOUNTER 2025-03-31 17:11 | Outpatient (REF) | payer MEDICARE, OTHER, SELFPAY ==
[2025-03-31 15:46] LABS: TSH (W/Ref FT4) 0.64 uIU/mL (0.36-3.74)
== END 2025-03-31 17:12 | disposition home or self-care (01) ==
LOC: NCHCN 17:11
PROVIDERS: PCP Nurse Practitioner Family; Visit Provider Student in an Organized Health Care Education/Training Program
DX: E03.9 Hypothyroidism, unspecified (principal)
CPT/HCPCS: 84443

== ENCOUNTER 2025-04-07 11:20 | Emergency (ER) | payer MEDICARE, OTHER, SELFPAY ==
[2025-04-07 11:21] VITALS: BP 125/82; PULSE 84; RESP 18; TEMP 36.3; O2SAT 96
--- NOTE | 2025-04-07 11:21 | RT.EKG_ITS ---
APPROVED REPORT Exam: Resting ECG Reason for Exam: Dizziness Patient Location: E HR:82 bpm ECG Measurements Heart Rate 82 AXIS SC 137 P -40 QRSd 77 QRS 59 QT 369 T -71 QTc 431 Conclusion Sinus rhythm, rate 82 No interval abnormalities No STEMI T wave inversions II, III, aVF, V3-V6, no priors available for comparison
--- NOTE | 2025-04-07 11:35 | ED.GENADUL_ITS ---
Discharge Plan Disposition Patient Disposition: Home Condition: Good Discharge Details Clinical Impression: COVID, Acute dehydration, BRONSON (acute kidney injury), Balance problem Primary Care Provider: Mirian Butler ED Provider: Liss Roberts Home Meds and New Rx's Prescriptions: Continued levothyroxine 50 MCG tablet 50 mcg PO DAILY albuterol sulfate 8.5 GM HFA aerosol inhaler 2 puff Inhalation PRN PRN lisinopril 40 MG tablet 40 mg PO HS amlodipine 2.5 MG tablet 2.5 mg PO HS multivitamin [Multi-Day] 1 EACH tablet 1 tab PO DAILY ketorolac 10 MG tablet 10 mg PO Q8H PRN (Reason: Pain) Qty: 15 0RF Discharge Instructions Instructions: COVID-19 ED Additional Instructions: As we discussed, I believe your symptoms are associated with you having COVID. You are just at the end of the window for Paxlovid, and after discussion, this medication is very expensive and we have decided to hold off on any treatment for your COVID diagnosis. He also appears very dehydrated which is putting strain on your kidneys. Please continue to encourage hydration. You should have your kidney function checked again soon by your primary care. Please call to schedule follow-up in the next 1 to 2 weeks. You may use Tylenol and ibuprofen as needed for discomfort. Please try to stay away from others to reduce spread, wash your hands frequently. If you develop shortness of breath, difficulty breathing, inability stay hydrated or other new/worsening symptom please seek care urgently once again. Referrals: Mirian Butler [Primary Care Provider, Medicine] [facility] General Date/Time Provider Initiated Documentation: 04/07/25 11:24 . Limitations to Documentation: no limitations . Information obtained by: patient, family and RN notes reviewed . History of Present Illness 84 year old F presents to the emergency department with the chief complaint of Balance issues, malaise, described as moderate, Quality is described as aching (Reports a mild general body aches), Patient started experiencing this day(s) (5) and it has been constant. Immobilization improves symptom(s), (Balance issues only with ambulation) Patient notes loss of appetite and malaise; denies confusion, chest pain, cough, fever/chills, nausea/vomiting, rash, shortness of breath and weakness. Patient did receive the following treatments prior to arrival, none Related Data Home Medications ?Medication ?Instructions ?Recorded ?Confirmed albuterol sulfate 90 mcg/actuation 2 puff inhalation P RN PRN 04/05/15 04/07/25 aerosol inhaler levothyroxine 50 mcg tablet 50 mcg PO DAILY 04/05/15 1 lisinopril 40 mg tablet 40 mg PO HS 04/05/15 5 multivitamin (Multi-Day tablet) 1 tab PO DAILY 6 04/07/25 amlodipine 2.5 mg tablet 2.5 mg PO HS 02/27/17 ketorolac 10 mg tablet 10 mg PO Q8H PRN Pain #15 ta bs 03/29/17 04/07/25 Previous Rx's ?Medication ?Instructions ?Recorded ketorolac 10 mg tablet 10 mg PO Q8H PRN Pain #15 ta bs 03/29/17 Allergies Allergy/AdvReac Type Severity Reaction Status Date / Time calcipotriene Allergy Other (See Verified 04/07/25 11:28 Comment) doxycycline Allergy Unknown Verified 04/07/25 11:28 metronidazole Allergy Unknown Verified 04/07/25 11:28 General Stated Complaint: Dizzy/Sync JAVIER: 3 Review of Systems Constitutional Constitutional: Reports as per HPI, Denies chills, Reports fatigue, Denies fever(s), Denies frequent falls and Denies weakness Eyes Eyes: Reports as per HPI, Denies blurry vision and Denies change in vision ENT Ears, Nose, Mouth, and Throat: Denies vertigo Cardiovascular Cardiovascular: Reports as per HPI, Denies chest pain, Denies dyspnea and Denies dyspnea on exertion Respiratory Respiratory: Reports as per HPI, Denies chest congestion, Denies cough, Denies dyspnea and Denies dyspnea on exertion Gastrointestinal Gastrointestinal: Reports as per HPI, Denies abdominal pain, Denies change in bowel habits, Denies nausea and Denies vomiting Musculoskeletal Musculoskeletal: Reports as per HPI, Denies back pain and Denies numbness Integumentary/Breasts Skin/Breast: Reports as per HPI and Denies rash Neurologic Neurologic: Reports as per HPI, Denies abnormal movements, Denies abnormal speech, Denies vertigo, Denies frequent falls, Denies localized weakness, Denies numbness, Denies sensory deficit and Denies weakness Endocrine Endocrine: Reports fatigue Exam Const General: cooperative, healthy appearing, comfortable, no acute distress, well developed and well groomed Nutritional Appearance: average body habitus and well nourished Orientation: alert, awake and oriented x3 [facility] Head: normal to inspection, no palpable skull fracture and normocephalic General nose exam: external nose normal Mouth: oral mucosae normal and moist mucous membranes Throat: posterior oropharynx normal Eyes General: appearance normal, both eyes and all related structures Alignment and Position: alignment normal Periorbital: periorbital findings normal Eyelids: eyelids normal Sclera: sclerae normal Cornea: corneas normal Pupils: PERRL EOM: EOM intact bilaterally Neck Neck: normal visual inspection, full ROM and no lymphadenopathy Resp Effort & Inspection: normal respiratory effort, able to speak in complete sentences and no respiratory distress Auscultation: clear to auscultation bilaterally, no rales, no rhonchi and no wheezes Cardio Rate: regular rate Rhythm: regular rhythm Heart Sounds: S1 normal and S2 normal Back/Spine/Pelvis Cervical Spine: normal cervical lordosis and cervical ROM normal Skin General skin exam: no rashes or lesions noted Neuro General: patient alert, patient awake and patient oriented x3 Cranial Nerves: CN's II-XI intact bilaterally Cognition: normal cognition Speech: speech normal Gait: normal gait Motor: muscle tone normal throughout, strength 5/5 throughout, no pronator drift, no movement abnormalities noted and no fasciculations Sensory Exam: no sensory deficits noted Coordination: [id number] test normal, avfu-rr-[id number] test normal and Romberg test normal (Slight sway with Romberg but able to maintain posture) Course Vital Signs Vital signs: Vital Signs Temperature 36.3 C L 04/07/25 11:21 Pulse 84 04/07/25 11:21 Respiratory Rate 18 04/07/25 11:21 Blood Pressure 125/82 04/07/25 11:21 Pulse Oximetry 96 04/07/25 11:21 Temperature 36.3 C L 04/07/25 11:21 Temperature Source Oral 04/07/25 11:21 Pulse 84 04/07/25 11:21 Respiratory Rate 18 04/07/25 11:21 Blood Pressure 125/82 04/07/25 11:21 Pulse Oximetry 96 04/07/25 11:21 Medical Decision Making Patient is a pleasant 84-year-old female with past medical history of asthma, hypertension, hypothyroidism, brought in by family with concerns for balance issues at home. She reports this been going on for the past 5 days. Questions of this may have been slightly present prior. She denies any head trauma and has not had any significant instability at home. She does report that she did tip once yesterday but otherwise has been able to stay on her feet. Is ambulating at home with a walker. No recent medication changes. Denies any fevers or chills. Patient does report that she has had some general body aches which are around the same time. No history of stroke. Denies any sensory deficits or significant weakness. States that she can occasionally have some tingling in her hands but states that this is also intermittent. When it does occur, it affects bilateral hands. Patient typically lives alone but does have very supportive family who are able to assist her. On exam, patient appears nontoxic. Comfortably in no acute distress. Hemodynamically stable. 2+ distal pulses. Lungs are clear. Normal cardiac exam. Neurologic exam is significant for patient being hard of hearing which is baseline. She does have hearing devices in. She also has some slight sway with a Romberg but is able to maintain posture well. [id number], [id number]-cd-[id number] no the cerebellar functioning toes are normal. Cranial nerves otherwise intact, no focal strength deficits. Primary concern based on her symptoms is posterior stroke. This been going on for several days so out of the window for thrombolytics. With generalized bodyaches, also considered viral illness such as flu or COVID so will test for this. Also considered electrolyte disturbance or other metabolic derangements. As the patient has not had any change in her medications, no indication to suggest that these could be contributing to her symptoms at this point. Will obtain CTA to evaluate for posterior stroke, baseline labs and continue to monitor the patient. ECG was obtained and reviewed by attending physician. Patient does have inverted T waves, no ST elevation. Patient has not had any chest pain, shortness of breath. Will obtain troponin but low concern for ACS at this time. No leukocytosis. Stable H&H. Patient does have elevated creatinine, she does have baseline elevation typically. She has been elevated to 2 historically, is 2.2 now so this does indicate a BRONSON. With the patient's history, she reports that she has had diminished fluid intake. She reports that she is often dehydrated but tries to hydrate prior to getting her labs checked. Feels like she can replenish orally. Despite the patient's GFR, my continued concern for posterior stroke does want to continue with the planned CTA and we will administer IV hydration in conjunction with the patient hydrating orally. CTA was reviewed by radiologist to contact the department. 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 No acute changes in this. I discussed these findings with patient and her family. Patient is COVID positive. She is 5 days from onset of symptoms. Based on the reassuring CTA as well as her exam not demonstrating significant posterior stroke, this is likely the source of her symptoms, in conjunction with her dehydration. Cannot believe further evaluation for stroke is warranted at this time. Pharmcy recommends, based on eGFR, 300mg today then 150mg x 4 days Discussed this with the patient. She would prefer to be able to go home, feels safe doing so. Needs to care for her cat. She does not have medication coverage. Called her pharmacy which is typically a mail order as well as try to [facility] and the medication has been a cost $1500. This, coupled with where the patient is in the disease course, I doubt that she will get large amount of benefit so, after shared decision making the patient and her family, we have decided to hold off on any Paxlovid dosing at this time. However, I did discuss patient's creatinine at length. She does report that she has not been drinking very much and often finds she does not want to do so but is agreeable to increasing her fluid intake. She is receiving IV hydration as well as oral hydration now. She is also asking for food. Some of the symptoms that she has been experiencing are likely associated with hypotension, particularly orthostatic hypotension which, based on patient's blood pressure logs that she brought with her, does appear to be the case. Patient received IV hydration. We did discuss the need to continue to hydrate at home to help prevent any worsening kidney function. We did discuss continued care at home in depth. Encourage close follow-up with primary care. Family will check on her frequently. She does feel safe to be discharged at this time we will continue with her walker to help maintain safety with ambulation. Strict return precautions were discussed. All of her questions and concerns were addressed and she is in agreement this plan. Dictation completed using [employer] software. Please excuse any errors or clinical administrative coordinator anomalies that may remain. PFSH All Active Problems (Updated 04/07/25 @ 14:59 by BRENDA Paniagua) Balance problem (Acute) BRONSON (acute kidney injury) (Acute) Acute dehydration (Acute) COVID (Acute) Sensorineural hearing loss (SNHL) of both ears (Acute) Tinnitus of left ear (Acute) Family history of malignant neoplasm of digestive organ (Acute) Medical History Asthma Hypertension Hypothyroidism Surgical History Ligation of fallopian tube Excision, Bladder Tumor Colonoscopy - IV Sedation Extraction of cataract Social History Smoking/Tobacco Use Status: Never Smoking risk assessment performed?: Yes Alcohol Intake: current Drug use: Never Substance use type: does not use Do you feel safe in your relationship?: Yes
--- NOTE | 2025-04-07 11:45 | DI.CT_ITS ---
Exam(s) CT BRAIN NECK CTA EXAM: CT BRAIN NECK CTA CLINICAL HISTORY: balance off. TECHNIQUE: Imaging Protocol: Axial CT angiography was performed with multi- slice acquisition and multi-planar and/or 3D reconstructions. CONTRAST MATERIAL: Intravenous: Omnipaque 350 Contrast volume:70 mL COMPARISON: CT CT HEAD WO from 09/30/2021 FINDINGS: CTA Neck W: Aortic arch anatomy: Bovine. Common origin for the brachiocephalic and left common carotid arteries. No stenosis at its origin off the aorta nor at the origin of the left subclavian artery off the aorta. Anterior circulation: Both common carotid arteries ascend with normal luminal diameters. At the level the carotid bulbs and proximal internal carotid arteries are some partially calcified plaque noted on the posterior jackson bilaterally. However, the amount of stenosis is estimated approximately less than 20 percent bilaterally at these levels. The internal carotid arteries in the upper neck are patent and nonstenotic. Also patent in the skull base-carotid canals. Posterior circulation: Both vertebral arteries originate in conventional fashion off of the subclavian arteries and there is no obvious stenosis at the origin of the vertebral arteries. Both vertebral arteries exhibit normal luminal diameters within the foramen transversarium. Right vertebral artery is dominant. No evidence of vertebral artery thrombosis nor dissection. There is calcified plaque on the lateral wall of the right vertebral artery at the skull base but no tight stenosis at this level. Both vertebral arteries contribute to the formation of the basilar artery at the skull base. CTA Brain W: Anterior circulation: There is some mural calcification in the internal carotid arteries in both cavernous sinuses but no tight stenosis evident. Supraclinoid aspects are patent. The supraclinoid aspects of the ICAs are patent. Both A1 segments are patent as are the anterior cerebral arteries and there is no evidence of aneurysm at the level of the anterior communicating artery. Both middle cerebral arteries are patent with no evidence of significant stenosis nor intraluminal thrombus. There also no aneurysms of these vessels. Posterior circulation: Basilar artery ascends without significant stenosis. Distally it gives off a superior cerebellar arteries and above this level terminates as patent bilateral posterior cerebral arteries. There is no evidence of aneurysm at the tip of the basilar artery nor elsewhere in the [id number]. CT BRAIN: There is no evidence of intracranial hemorrhage, mass effect, or shift of midline structures. There are no extra-axial fluid collections. Ventricles are not enlarged or shifted. There are no ring enhancing lesions in the brain and no abnormal meningeal enhancement. Symmetrical hypodensity is again noted in the anterior limb of both internal capsules which are probably nonhemorrhagic lacunar infarcts. There is no enhancement in these regions nor elsewhere in the brain. No ring enhancing lesions. No abnormal meningeal enhancement. IMPRESSION: 1. There is some partially calcified plaque on the posterior jackson of both carotid bulbs and proximal ICAs but less than 20 percent stenosis bilaterally at these levels. 2. Patent vertebral arteries. There is some calcified plaque on the lateral wall of the right vertebral artery at the skull base but no tight stenosis at this level. Also no evidence of vertebral artery thrombosis nor dissection. 3. Patent intracranial arteries. No aneurysms. No vascular malformations evident. 4. No acute intracranial findings. No ring enhancing lesions in the brain. Small bilateral lacunar infarcts as described above which are unchanged from CT scan of September 2021. 5. Bovine configuration aortic arch incidentally noted. 6. If clinically indicated follow-up MRI can be performed Report called by self to ER provider 04/07/2025 2:20 p.m. RADIATION DOSE DELIVERED: 1,880.36mGy.cm Total DLP DATA REPOSITORY: All CT scans at this facility are submitted to the National Radiology Data Registry (NRDR) Dose Index Registry (DIR) with the [employer] (A[employer]). RADIATION OPTIMIZATION: All CT scans at this facility use at least one of these dose optimization techniques: automated exposure control; mA and/or kV adjustment per patient size (includes targeted exams where dose is matched to clinical indication); or iterative reconstruction.
[2025-04-07 11:48] VITALS: RESP 18
[2025-04-07 12:23] LABS: RSV PCR Negative (Negative)
[2025-04-07 12:25] LABS: COVID-19 PCR Positive (Negative)
[2025-04-07] MEDS: Normal Saline 500 ML IV ×2 (12:57→14:52)
[2025-04-07 13:02] LABS: Abs Immature Grans 0.02 10^3/uL (0.0-0.06); HCT 38.0 % (36.0-46.0); HGB 12.5 g/dL (11.2-15.7); Immature Grans % 0.4 %; MCH 29.4 pg (27.0-33.0); MCHC 32.9 % (32.0-36.0); MCV 89 fL (80-95); MPV 11.5 fL (8.0-11.0); Platelet Count 127 10^3/uL (130-400); RBC 4.25 10^6/uL (3.93-5.22); RDW 12.6 % (11.7-14.6); RDW-SD 41.3 fL; WBC 4.57 10^3/uL (4.4-10.8)
[2025-04-07 13:20] LABS: ALT 22 U/L (14-59); AST 41 U/L (15-37); Albumin 3.5 g/dL (3.4-5.0); Alkaline Phosphatase 85 U/L (46-116); Anion Gap 11.8 mmol/L (3-11); BUN 54 mg/dL (7-18); Bilirubin, Total 0.3 mg/dL (0.2-1.0); CO2 22.2 mmol/L (21.0-32.0); Calcium 9.5 mg/dL (8.5-10.1); Chloride 99 mmol/L (98-107); Estimated GFR 21.57 (mL/min/1.73m2); Glucose 110 mg/dL (74-106); Magnesium 2.2 mg/dL (1.8-2.4); Potassium 4.1 mmol/L (3.5-5.1); Sodium 133 mmol/L (136-145); Total Protein 8.0 g/dL (6.4-8.2); Troponin I 14 ng/L (<or=51)
[2025-04-07] MEDS: Normal Saline Flush 10 ML SYR IVP (13:33)
[2025-04-07] MEDS: Normal Saline - Diluent 50 ML VIAL IJ (13:33)
[2025-04-07] MEDS: Omnipaque 350 MG/ML 500 ML BTL-Imaging package IJ (13:34)
[2025-04-07 15:20] LABS: Troponin I 13 ng/L (<or=51)
[2025-04-07 16:22] VITALS: BP 113/60; PULSE 83; RESP 16; TEMP 36.6; O2SAT 98
--- NOTE | 2025-04-07 16:24 | NUR.NOTE ---
Patient and daughter requested a copy of all the test that was done today when i was about to discharge her.This scriber asked the patient and daughter if they had the Portal. The daughter responded, no we do not and we just want a copy of everything I then relay information to the charge nurse. i however asked for a copy of the results from the test that was done today. I then told the patient they can always request a copy from medical records. Patient asked if she has a fever upon registration, i told her i was not aware what her initial vitals were but the current vitals that i had just done was not reflecting an elevated temp. Patient was then upset that she had to sign discharge paper work because she signed paper work at registration. I informed the patient that the paper work that she is signing upon discharge is different from the paperwork that she signs upon arrival.
== END 2025-04-07 16:22 | disposition home or self-care (01) ==
PROVIDERS: Emergency Medicine; Emergency Provider Physician Assistant; PCP Nurse Practitioner Family
DX: U07.1 COVID-19 (principal); N17.9 Acute kidney failure, unspecified; E86.0 Dehydration; R26.89 Other abnormalities of gait and mobility
CPT/HCPCS: 36415; 70496; 70498; 80053; 87637; 93005; 96360; 96361; 99285; 83735; 84484; 85025; 93010; 99284

== ENCOUNTER 2025-04-22 21:06 | Outpatient (REF) | payer MEDICARE, OTHER, SELFPAY ==
[2025-04-22 21:03] LABS: Anion Gap 9.4 mmol/L (3-11); BUN 31 mg/dL (7-18); CO2 23.6 mmol/L (21.0-32.0); Calcium 9.0 mg/dL (8.5-10.1); Chloride 100 mmol/L (98-107); Estimated GFR 44.36 (mL/min/1.73m2); Glucose 93 mg/dL (74-106); Potassium 5.5 mmol/L (3.5-5.1); Sodium 133 mmol/L (136-145)
== END 2025-04-22 21:07 | disposition home or self-care (01) ==
LOC: NCHCN 21:06
PROVIDERS: PCP Nurse Practitioner Family; Visit Provider Student in an Organized Health Care Education/Training Program
DX: I10 Essential (primary) hypertension (principal)
CPT/HCPCS: 80048